=== PATIENT | male | born 1980 | race Caucasian/White ===

== ENCOUNTER 2016-11-28 18:00 | Emergency (ER) | payer SELFPAY ==
[2016-11-28] MEDS ORDERED: oxyCODONE/Acetamin 5/325 MG* TAB PO ONE (19:01)
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
[2016-11-28 19:40] VITALS: BP 126/77
== END 2016-11-28 19:39 | disposition home or self-care (01) ==
LOC: ED 18:00
DX: S00.432A Contusion of left ear, initial encounter (principal); H92.02 Otalgia, left ear; F17.210 Nicotine dependence, cigarettes, uncomplicated; Y08.89XA Assault by other specified means, initial encounter; Y93.9 Activity, unspecified; Y92.89 Other specified places as the place of occurrence of the external cause; Y99.9 Unspecified external cause status
CPT/HCPCS: 99282; A9270-GY

== ENCOUNTER → 2016-12-03 16:29 | Emergency (ER) | payer SELFPAY ==
[~2016-12-03 16:29] MED LIST: Ketorolac INJ* 60 MG/2 ML VIAL IM ONE
[2016-12-03 17:03] VITALS: BP 102/64
--- NOTE | 2016-12-03 18:55 | ED ---
Skin Complaint - HPI Summary HPI Summary: Patient presents with 1x week s/p injury to the left ear with CC of auricular hematoma. He was seen in the ED 5 days and the hematoma was aspirated and packed using xeroform gauze Today, he states the gauze fell out and he returns d/t hematoma again which is worse than the first visit. He notes to 8/10 pain discretely located over the auricle of the ear. Denies decreased hearing, neck pain or fevers. He has not been using a compression dressing and states the gauze fell out on day 2. - History of Current Complaint Chief Complaint: EDEarPain Time Seen by Provider: 12/03/16 17:34 Stated Complaint: LT EAR INFLAMMATION Hx Obtained From: Patient Onset/Duration: Started Weeks Ago, Traumatic Skin Exposure Onset/Duration: Weeks Ago Timing: Constant Onset Severity: Moderate Current Severity: Moderate Pain Intensity: 9 Pain Scale Used: 0-10 Numeric Skin Location: Discrete, Ear Character: Swelling, Pain Aggravating Symptom(s): Nothing Associated Signs & Symptoms: Drainage Related History: Trauma - Allergy/Home Medications Allergies/Adverse Reactions: Allergies Allergy/AdvReac Type Severity Reaction Status Date / Time Diazepam [From Valium] Allergy Unknown Verified 01/20/15 22:40 Reaction Details PMH/Surg Hx/FS Hx/Imm Hx Previously Healthy: Yes Endocrine/Hematology History: Denies: Hx Diabetes Cardiovascular History: Denies: Hx Hypertension, Hx Pacemaker/ICD Respiratory History: Denies: Hx Asthma Sensory History: Denies: Hx Hearing Aid Psychiatric History: Denies: Hx Panic Disorder - Surgical History Surgery Procedure, Year, and Place: LEFT KNEE ACL/FX RT KNEE WITH ORIF SCREW - Immunization History Hx Pertussis Vaccination: No Immunizations Up to Date: Unable to Obtain/Confirm Infectious Disease History: No Infectious Disease History: Denies: Traveled Outside the [place] in Last 30 Days - Family History Known Family History: Positive: Cardiac Disease - Social History Occupation: Employed Full-time Lives: With Family Alcohol Use: Occasionally Hx Substance Use: No Substance Use Type: Reports: None Hx Tobacco Use: Yes Smoking Status (MU): Heavy Every Day Tobacco Smoker Review of Systems Constitutional: Negative Eyes: Negative Positive: Ear Ache Cardiovascular: Negative Respiratory: Negative Positive: no symptoms reported, see HPI Musculoskeletal: Negative Positive: Other - hematoma of the left ear Neurological: Negative All Other Systems Reviewed And Are Negative: Yes Physical Exam Triage Information Reviewed: Yes Vital Signs On Initial Exam: Initial Vitals Temp Pulse Resp BP Pulse Ox 98.2 F 92 17 124/66 99 12/03/16 16:44 12/03/16 16:44 12/03/16 16:44 12/03/16 16:44 12/03/16 16:44 Vital Signs Reviewed: Yes Appearance: Positive: Well-Appearing, Well-Nourished Skin: Positive: Warm, Skin Color Reflects Adequate Perfusion, Other - auricular hematoma of the left ear Head/Face: Positive: Normal Head/Face Inspection Eyes: Positive: Normal, EOMI, CHAGO, Conjunctiva Clear Neck: Positive: Supple, No Lymphadenopathy Respiratory/Lung Sounds: Positive: Clear to Auscultation, Breath Sounds Present Cardiovascular: Positive: Normal, RRR, Pulses are Symmetrical in both Upper and Lower Extremities Musculoskeletal: Positive: Normal, Strength/ROM Intact Neurological: Positive: Sensory/Motor Intact, Alert, Oriented to Person Place, Time, Speech Normal Psychiatric: Positive: Normal Procedures - Incision and Drainage Site: left ear Anesthesia: Local Instrument(s): Scalpel, Needle Packing: Gauze - xeroform placed over area - Laceration/Wound Repair 1 Location: Other - ear Description: Linear Anesthesia: Local Betadine Prep?: No Laceration/Wound Explored: clean Closure: Single Layer Suture Type: Chromic - absorbable Layer Closure?: No - 1 Sterile Dressing Applied?: No Diagnostics - Vital Signs Vital Signs Temp Pulse Resp BP Pulse Ox 12/03/16 16:57 98.3 F 97 18 102/64 98 12/03/16 16:44 98.2 F 92 17 124/66 99 - Laboratory Lab Statement: Any lab studies that have been ordered have been reviewed, and results considered in the medical decision making process. Course/Dx - Course Course Of Treatment: s/p 1 week auricular hematoma of the left ear. He was seen in ED last week and area was drained and packed with xeroform gauze. He returns today for return of hematoma. States he is unable to follow up with ENT d/t no insurance. He also states the xeroform gauze fell off 2 days after placement and he did not keep a compression dressing over the ear. Used iodine solution to cleanse the area x 3. 2ml 1% lidocaine locally placed into the helical curvature with effect. The area was incised along the curvature of the auricle parallel to the helical curve at the base of the hematoma using a 11 blade. Copious amounts of yellow serious/sanguinous fluid drained. Irrigated with water. 1 absorbable 5-0 chormic gut suture placed through the cartilage. Small area left open for drainage. Xeroform gauze packed with gauze in the anterior and posterior portion of the ear. Compression dressing placed. Patient is encouraged to change out xeroform gauze x 3 days and continue 24 hours with compression. If hematoma develops, will return to ED or follow up with ENT. Patient agrees and is OK for discharge. - Differential Diagnoses - Skin Complaint Differential Diagnoses: Other - auricular hematoma, hematoma, incision, abscess - Diagnoses Provider Diagnoses: Hematoma of auricle Discharge - Discharge Plan Condition: Stable Disposition: HOME Patient Education Materials: Hematoma (ED) Referrals: No Primary Care Phys,NOPCP [Primary Care Provider] - Additional Instructions: If symptoms worsen, return to the ED Xeroform gauze and compression dressing as showed x 3 days. If worsening swelling develops - you need to return to the ED immediately. Images - Images Ear: 1 - hematoma with swelling - no ecchymosis or erythema noted
== END | disposition home or self-care (01) ==
LOC: ED 16:29
DX: S01.312A Laceration without foreign body of left ear, initial encounter (principal); X58.XXXA Exposure to other specified factors, initial encounter; Y93.9 Activity, unspecified; Y92.9 Unspecified place or not applicable
CPT/HCPCS: 12001; 99282; J1885

== ENCOUNTER 2016-12-07 14:44 | Emergency (ER) | payer SELFPAY ==
[2016-12-07] MEDS ORDERED: Cephalexin CAP* 500 MG PO ONE (16:04)
[2016-12-07] MEDS ORDERED: Ibuprofen TAB* 600 MG PO ONE (16:04)
[2016-12-07] MEDS ORDERED: HYDROcodone/ACETAMIN 5-325 MG* 1 TAB PO ONE (16:04)
[2016-12-07 16:27] VITALS: BP 116/76
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
== END 2016-12-07 16:26 | disposition home or self-care (01) ==
LOC: ED 14:44
DX: H60.02 Abscess of left external ear (principal); H92.02 Otalgia, left ear; F17.210 Nicotine dependence, cigarettes, uncomplicated
CPT/HCPCS: 87070; 87205; 99282; A9270-GY

== ENCOUNTER 2016-12-09 20:21 | Emergency (ER) | payer SELFPAY ==
[2016-12-09 20:28] VITALS: BP 141/89
[2016-12-09] MEDS ORDERED: oxyCODONE/Acetamin 5/325 MG* TAB PO ONE (22:12)
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
[2016-12-09] MEDS ORDERED: Sulfamethox/Trimethoprim DS 800/160* TAB PO ONE (22:59)
== END 2016-12-09 23:28 | disposition home or self-care (01) ==
LOC: ED 20:21
DX: S00.432A Contusion of left ear, initial encounter (principal); R60.9 Edema, unspecified; F17.210 Nicotine dependence, cigarettes, uncomplicated; W22.8XXA Striking against or struck by other objects, initial encounter; Y93.9 Activity, unspecified; Y92.9 Unspecified place or not applicable
CPT/HCPCS: 99282; A9270-GY

== ENCOUNTER 2017-03-14 01:05 | Observation (INO) | payer MEDICAID ==
[2017-03-14] MEDS ORDERED: oxyCODONE/Acetamin 5/325 MG* TAB PO ONE (02:51)
[2017-03-14] MEDS ORDERED: Tetan/Diph/Pertus SYR(Tdap)* 0.5 ML SYR(BOOSTRIX) use SYR IM ONE (03:58)
[2017-03-14] MEDS ORDERED: Mouth Piece, Nicotine* 1 EACH CARTRIDGE INH PRN (04:04)
[2017-03-14] MEDS ORDERED: Ondansetron INJ* 2 MG/ML VIAL IV PRN (04:08)
[2017-03-14] MEDS ORDERED: Mouth Piece, Nicotine* 1 EACH CARTRIDGE ONE (04:09)
[2017-03-14] MEDS: Nicotine Inhaler* 10 MG AMP INH ONE ×2 (04:18→05:48)
[2017-03-14 05:17] LABS: Hematocrit 46 % (42-52); Hemoglobin 15.4 g/dl (14.0-18.0); Mean Corpuscular HGB Conc 34 g/dl (31-36); Mean Corpuscular Hemoglobin 30 pg (27-31); Mean Corpuscular Volume 89 fL (80-94); Mean Platelet Volume 8 um3 (7.4-10.4); Red Blood Count 5.17 10^6/ul (4.0-5.4); Red Cell Distribution Width 14 % (10.5-15); White Blood Count 16.1 10^3/ul (3.5-10.8)
[2017-03-14 05:29] LABS: Albumin 4.7 g/dL (3.2-5.2); BUN/Creatinine Ratio 11.5 (8-20); Calcium 9.6 mg/dL (8.6-10.3); EGFR African American 127.7 (>60); EGFR Non-African American 99.3 (>60); Globulin 2.8 g/dL (2-4); Potassium 3.9 mmol/L (3.5-5.0); Total Bilirubin 0.3 mg/dL (0.2-1.0); Total Protein 7.5 g/dL (6.4-8.9)
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
[2017-03-14] MEDS ORDERED: Nicotine Inhaler* 10 MG AMP ONE ×2 (05:46→09:28)
[2017-03-14] MEDS ORDERED: Mouth Piece, Nicotine* 1 EACH CARTRIDGE INH ONE (06:00)
[2017-03-14] MEDS: oxyCODONE/Acetamin 5/325 MG* TAB PO PRN ×2 (07:40→12:06)
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
[2017-03-14] MEDS ORDERED: Nicotine PATCH 14 MG/24 HR* PATCH TRANSDERM SCH (09:00)
--- NOTE | 2017-03-14 10:37 | RAD ---
INDICATION: Intracranial [id number] COMPARISON: CT brain March 14, 2017 TECHNIQUE: Noncontrast axial source images were acquired from the skull base to the vertex. FINDINGS: Ventricles/sulci: The ventricles and cisterns are normal in size and configuration for age. Brain parenchyma: There are bilateral subfrontal intraparenchymal hematomas. There is increased conspicuity on the left consistent with a small amount of increased hemorrhage. The hemorrhagic focus measures approximately 2 cm on the left and is associated with a small amount of edema. On the right the findings are perhaps slightly less conspicuous. Intracranial hemorrhage: As above. Extra-axial spaces: There are no abnormal extra axial fluid collections or evidence of extra-axial mass. Calvarium: There is no calvarial fracture or other calvarial abnormality. Scalp: There is no evidence of scalp or extracalvarial soft tissue abnormality. Paranasal sinuses/mastoid: The paranasal sinuses and mastoid air cells are clear. Other: There is a hematoma the left maxillary region described in a separate report.. IMPRESSION: Bilateral subfrontal hemorrhage with slight increased hemorrhage in the left subfrontal region
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
[2017-03-14 11:47] VITALS: BP 143/86
--- NOTE | 2017-03-14 12:00 | PN ---
Progress Note - Progress Note Date of Service: 03/14/17 Note: Again discussed the case with Dr. Robbins. He recommends repeat CT brain tomorrow morning, 03/15/17, rather than in 8 hours. Order placed and plan discussed with the patient.
== END 2017-03-14 12:25 | disposition left against medical advice (07) ==
LOC: ED 01:05 → SSU 04:04
PROVIDERS: ADMIT Neurological Surgery; ATTEND Neurological Surgery
DX: S06.300A Unspecified focal traumatic brain injury without loss of consciousness, initial encounter (principal); S00.83XA Contusion of other part of head, initial encounter; S61.219A Laceration without foreign body of unspecified finger without damage to nail, initial encounter; Y04.8XXA Assault by other bodily force, initial encounter; Y92.9 Unspecified place or not applicable; R51 Headache; F17.210 Nicotine dependence, cigarettes, uncomplicated; M54.2 Cervicalgia
CPT/HCPCS: 36415; 70450; 70486; 80053; 85025; 85610; 85730; 90715; 99284; A9270-GY; G0378

== ENCOUNTER 2017-07-06 09:20 | Emergency (ER) | payer MEDICAID, OTHER ==
--- NOTE | 2017-07-06 11:09 | RAD ---
Indication: RIGHT knee pain post fall. Comparison: January 20, 2015 Technique: RIGHT knee: AP, tunnel, lateral, sunrise views. REPORT: Negative for joint effusion, fracture, or malalignment. Solitary internal fixation screw at the inferolateral patella unchanged from the prior exam. Osteophytosis and moderate joint space narrowing at the patellofemoral joint. Mild anterior soft tissue swelling. IMPRESSION: 1. Mild anterior soft tissue swelling. Negative for effusion or fracture. 2. Moderate degenerative arthropathy at the patellofemoral joint without significant change.
[2017-07-06] MEDS ORDERED: Ibuprofen TAB* 600 MG PO ONE (11:20)
[2017-07-06 11:29] VITALS: BP 137/81
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
== END 2017-07-06 11:29 | disposition home or self-care (01) ==
LOC: ED 09:20
DX: M25.561 Pain in right knee (principal); F17.210 Nicotine dependence, cigarettes, uncomplicated
CPT/HCPCS: 99282; A9270-GY

== ENCOUNTER 2017-07-27 15:29 | Emergency (ER) | payer SELFPAY ==
[2017-07-27] MEDS ORDERED: NS 0.9% 1000 ML* 1,000 ML IV ONE (15:47)
[2017-07-27 16:11] LABS: ABS Basophils 0.1 10^3/ul (0-0.2); ABS Eosinophils 0.2 10^3/ul (0-0.6); ABS Lymphocytes 2.5 10^3/ul (1.0-4.8); ABS Monocytes 0.6 10^3/ul (0-0.8); ABS Neutrophils 6.5 10^3/ul (1.5-7.7); ABS Nucleated RBC 0 10^3/ul; Eosinophil % 1.7 % (0-6); Hematocrit 49 % (42-52); Hemoglobin 16.6 g/dl (14.0-18.0); Lymphocyte % 25.4 % (25-47); Mean Corpuscular HGB Conc 34 g/dl (31-36); Mean Corpuscular Hemoglobin 30 pg (27-31); Mean Corpuscular Volume 89 fL (80-94); Mean Platelet Volume 9 um3 (7.4-10.4); Nucleated Red Blood Cells % 0; Platelet Count 245 10^3/ul (150-450); Red Blood Count 5.54 10^6/ul (4.0-5.4); Red Cell Distribution Width 13 % (10.5-15); White Blood Count 9.9 10^3/ul (3.5-10.8)
--- NOTE | 2017-07-27 16:15 | RAD ---
INDICATION: Chest pain COMPARISON: August 09, 2013 TECHNIQUE: An AP portable view obtained at 1605 hours is submitted. FINDINGS: Bones/Soft Tissues: There are no acute bony findings. Cardiomediastinal: The cardiomediastinal silhouette is normal. Lungs: There are no infiltrates. Pleura: There are no pleural effusions. Other: None IMPRESSION: NO ACTIVE DISEASE.
[2017-07-27 16:19] LABS: INR 0.92 (0.77-1.02)
[2017-07-27 16:23] LABS: EGFR Non-African American 107.8 (>60)
[2017-07-27] MEDS ORDERED: Al Hydrox/Mg Hydrox/Simet LIQ* 30 ML UDC PO ONE (17:08)
[2017-07-27] MEDS ORDERED: ALPRAZolam TAB* 0.25 MG PO ONE ×2 (17:08→19:04)
[2017-07-27] MEDS ORDERED: Lidocaine 2% VISCOUS* 15 ML UDC PO ONE (17:08)
[2017-07-27] MEDS ORDERED: Iohexol 350* (CONTRAST) 500 ML MDV IV ONE (17:49)
--- NOTE | 2017-07-27 18:04 | RAD ---
INDICATION: Chest pain. Short of breath. Normal d-dimer. Evaluate for pulmonary embolus. COMPARISON: Chest x-ray same date TECHNIQUE: Axial source images were obtained from the thoracic inlet to the hemidiaphragms following administration of [address] angiographic technique was utilized. Coronal and sagittal reconstructed images were acquired. CHEST FINDINGS: Neck/thyroid: The visualized neck to include the thyroid appear normal. Chest wall: There are no acute abnormalities of the bony thorax or chest wall. There is no supraclavicular, infraclavicular, or axillary lymphadenopathy. Lungs : There are no pulmonary parenchymal masses or infiltrates. The pulmonary interstitium appears normal. There are no endobronchial lesions. Cardiomediastinal structures: There is no CT evidence of acute pulmonary embolic disease. The heart is normal in size. There is no pericardial effusion. There is no evidence of aortic aneurysm or dissection. There is no mediastinal or hilar adenopathy. The esophagus appears normal. Pleura : There are no pleural-based masses or effusions. Other: None. IMPRESSION: NO CT EVIDENCE OF ACUTE PULMONARY EMBOLIC DISEASE. LUNGS CLEAR.
[2017-07-27] MEDS ORDERED: Omeprazole CAP* 20 MG PO ONE (19:03)
[2017-07-27 19:25] VITALS: BP 131/78
--- NOTE | 2017-07-27 21:57 | ED ---
Luis Alfredo Tovar Stephanie, scribed for Carlos Paul MD on 07/27/17 at 1705 . HPI Chest Pain - HPI Summary HPI Summary: The pt is a 36 y/o M presenting to the ED with c/o CP that began at 03:00 today. The pt states he has had intermittent CP that radiates into the back for the past few months. The pt describes his back pain as a stabbing pain. He describes his CP as a squeezing pain. Symptoms include diaphoresis and dizziness. The pt denies nausea, recent illness, fever and chills. Aggravating factors include movement. The pt states he has a hx of back injury and head trauma six months ago. He states that his CP began yesterday as the same feeling as when he has anxiety. The pt states he has recently been under a lot of stress. - History of Current Complaint Chief Complaint: EDChestPainROMI Time Seen by Provider: 07/27/17 16:49 Hx Obtained From: Patient Onset/Duration: Started Hours Ago - ~15 Timing: Intermittent Current Severity: Moderate Pain Intensity: 8 Pain Scale Used: 0-10 Numeric Chest Pain Location: Mid Sternal Chest Pain Radiates: Yes Chest Pain Radiates To:: Back Character: Pressure/Squeezing, Sharp/Stabbing Aggravating Factor(s): Other: - stress Alleviating Factor(s): Nothing Associated Signs and Symptoms: Positive: Chest Pain, Dizziness, Diaphoresis, Back Pain. Negative: Fever, Chills, Nausea - Additional Pertinent History Primary Care Physician: [id number] - Allergy/Home Medications Allergies/Adverse Reactions: Allergies Allergy/AdvReac Type Severity Reaction Status Date / Time diazepam [From Valium] Allergy Unknown Verified 07/27/17 15:44 Reaction Details sulfamethoxazole Allergy GI Upset Verified 07/27/17 15:52 [From Bactrim] trimethoprim [From Bactrim] Allergy GI Upset Verified 07/27/17 15:52 Home Medications: Home Medications Potassium 99 mg PO DAILY 07/27/17 [History Confirmed 07/27/17] PMH/Surg Hx/FS Hx/Imm Hx Endocrine/Hematology History: Denies: Hx Diabetes Cardiovascular History: Denies: Hx Hypertension, Hx Pacemaker/ICD Respiratory History: Denies: Hx Asthma Musculoskeletal History: Reports: Other Musculoskeletal History - acl repair Sensory History: Reports: Hx Contacts or Glasses Denies: Hx Hearing Aid Opthamlomology History: Reports: Hx Contacts or Glasses Psychiatric History: Reports: Hx Anxiety Denies: Hx Panic Disorder - Surgical History Surgery Procedure, Year, and Place: LEFT KNEE ACL/FX RT KNEE WITH ORIF SCREW Infectious Disease History: No Infectious Disease History: Denies: Hx of Known/Suspected MRSA, Traveled Outside the [place] in Last 30 Days - Family History Known Family History: Positive: Cardiac Disease - Social History 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 Negative: Fever, Chills Positive: Chest Pain Negative: Nausea Positive: Other - back pain Neurological: Other - dizziness All Other Systems Reviewed And Are Negative: Yes Physical Exam - Summary Physical Exam Summary: General: well-appearing, no pain distress Skin: warm, color reflects adequate perfusion, dry Head: normal Eyes: EOMI, [place] ENT: normal Neck: supple, nontender Respiratory: CTA, breath sounds present Cardiovascular: RRR Abdomen: soft, nontender Bowel: present Musculoskeletal: normal, strength/ROM intact Neurological: normal, sensory/motor intact, A&O x3 Psychological: affect/mood appropriate Triage Information Reviewed: Yes Vital Signs On Initial Exam: Initial Vitals Temp Pulse Resp BP Pulse Ox 99.7 F 99 16 129/94 100 07/27/17 15:35 07/27/17 15:35 07/27/17 15:35 07/27/17 15:35 07/27/17 15:35 Vital Signs Reviewed: Yes Diagnostics - Vital Signs Vital Signs Temp Pulse Resp BP Pulse Ox 07/27/17 16:30 95 10 132/81 99 07/27/17 16:04 98 07/27/17 16:00 97 15 139/89 97 07/27/17 15:45 99 14 98 07/27/17 15:42 129/94 07/27/17 15:35 99.7 F 99 16 129/94 100 - Laboratory Lab Results: Lab Results 07/27/17 07/27/17 07/27/17 Range/Units 15:51 15:57 15:57 WBC 9.9 (3.5-10.8) 10^3/ul RBC 5.54 H (4.0-5.4) 10^6/ul Hgb 16.6 (14.0-18.0) g/dl Hct 49 (42-52) % MCV 89 (80-94) fL MCH 30 (27-31) pg MCHC 34 (31-36) g/dl RDW 13 (10.5-15) % Plt Count 245 (150-450) 10^3/ul MPV 9 (7.4-10.4) um3 Neut % (Auto) 65.8 (38-83) % Lymph % (Auto) 25.4 (25-47) % [place] % (Auto) 6.6 (0-7) % Eos % (Auto) 1.7 (0-6) % Baso % (Auto) 0.5 (0-2) % Absolute Neuts (auto) 6.5 (1.5-7.7) 10^3/ul Absolute Lymphs (auto) 2.5 (1.0-4.8) 10^3/ul Absolute Monos (auto) 0.6 (0-0.8) 10^3/ul Absolute Eos (auto) 0.2 (0-0.6) 10^3/ul Absolute Basos (auto) 0.1 (0-0.2) 10^3/ul Absolute Nucleated RBC 0 10^3/ul Nucleated RBC % 0 INR (Anticoag Therapy) (0.77-1.02) APTT (26.0-36.3) seconds D-Dimer, Quantitative (Less Than 230) ng/mL Sodium 136 (133-145) mmol/L Potassium 3.8 (3.5-5.0) mmol/L Chloride 106 (101-111) mmol/L Carbon Dioxide 25 (22-32) mmol/L Anion Gap 5 (2-11) mmol/L BUN 6 (6-24) mg/dL Creatinine 0.81 (0.67-1.17) mg/dL Est GFR ( Amer) 138.7 (>60) Est GFR (Non-Af Amer) 107.8 (>60) BUN/Creatinine Ratio 7.4 L (8-20) Glucose 94 (70-100) mg/dL Lactic Acid (0.5-2.0) mmol/L Calcium 9.2 (8.6-10.3) mg/dL Magnesium 2.1 (1.9-2.7) mg/dL Total Bilirubin 0.30 (0.2-1.0) mg/dL AST 13 (13-39) U/L ALT 17 (7-52) U/L Alkaline Phosphatase 70 (34-104) U/L Total Creatine Kinase 71 (10-223) U/L CK-MB (CK-2) 0.9 (0.6-6.3) ng/mL Troponin I 0.00 (<0.04) ng/mL B-Natriuretic Peptide 15 ( - 100) pg/mL Total Protein 6.9 (6.4-8.9) g/dL Albumin 4.2 (3.2-5.2) g/dL Globulin 2.7 (2-4) g/dL Albumin/Globulin Ratio 1.6 (1-3) TSH 1.74 (0.34-5.60) mcIU/mL 07/27/17 07/27/17 Range/Units 15:57 15:57 WBC (3.5-10.8) 10^3/ul RBC (4.0-5.4) 10^6/ul Hgb (14.0-18.0) g/dl Hct (42-52) % MCV (80-94) fL MCH (27-31) pg MCHC (31-36) g/dl RDW (10.5-15) % Plt Count (150-450) 10^3/ul MPV (7.4-10.4) um3 Neut % (Auto) (38-83) % Lymph % (Auto) (25-47) % [place] % (Auto) (0-7) % Eos % (Auto) (0-6) % Baso % (Auto) (0-2) % Absolute Neuts (auto) (1.5-7.7) 10^3/ul Absolute Lymphs (auto) (1.0-4.8) 10^3/ul Absolute Monos (auto) (0-0.8) 10^3/ul Absolute Eos (auto) (0-0.6) 10^3/ul Absolute Basos (auto) (0-0.2) 10^3/ul Absolute Nucleated RBC 10^3/ul Nucleated RBC % INR (Anticoag Therapy) 0.92 (0.77-1.02) APTT 33.0 (26.0-36.3) seconds D-Dimer, Quantitative < 200 (Less Than 230) ng/mL Sodium (133-145) mmol/L Potassium (3.5-5.0) mmol/L Chloride (101-111) mmol/L Carbon Dioxide (22-32) mmol/L Anion Gap (2-11) mmol/L BUN (6-24) mg/dL Creatinine (0.67-1.17) mg/dL Est GFR ( Amer) (>60) Est GFR (Non-Af Amer) (>60) BUN/Creatinine Ratio (8-20) Glucose (70-100) mg/dL Lactic Acid 0.7 (0.5-2.0) mmol/L Calcium (8.6-10.3) mg/dL Magnesium (1.9-2.7) mg/dL Total Bilirubin (0.2-1.0) mg/dL AST (13-39) U/L ALT (7-52) U/L Alkaline Phosphatase (34-104) U/L Total Creatine Kinase (10-223) U/L CK-MB (CK-2) (0.6-6.3) ng/mL Troponin I (<0.04) ng/mL B-Natriuretic Peptide ( - 100) pg/mL Total Protein (6.4-8.9) g/dL Albumin (3.2-5.2) g/dL Globulin (2-4) g/dL Albumin/Globulin Ratio (1-3) TSH (0.34-5.60) mcIU/mL Result Diagrams: 07/27/17 15:57 07/27/17 15:57 Lab Statement: Any lab studies that have been ordered have been reviewed, and results considered in the medical decision making process. - Radiology CXR Xray Interpretation: No Acute Changes Radiology Interpretation Completed By: Radiologist - NO ACTIVE DISEASE - CT CTA Chest CT Interpretation: No Acute Changes CT Interpretation Completed By: Radiologist - NO CT EVIDENCE OF ACUTE PULMONARY EMBOLIC DISEASE. LUNGS CLEAR. - EKG 15:47 Cardiac Rate: NL EKG Rhythm: Sinus Rhythm - [address] Segment: Normal Ectopy: None EKG Interpretation: Not a STEMI Chest Pain Course/Dx - Course Course Of Treatment: BP noted and advised to follow up with PCP. Medications reviewed. Allergies noted. IMPROVED IN ED. NO SECOND TROPONIN CHEST PAIN ONSET GREATER THAN 6 HOURS COAL SAMPLER. DISCUSSED RESULT WITH PATIENT AND . F/U PMD; RETURN IF WORSE. - Diagnoses Provider Diagnoses: Elevated blood pressure reading without diagnosis of hypertension, Chest pain, Anxiety, GERD (gastroesophageal reflux disease) Discharge - Discharge Plan Condition: Stable Disposition: HOME Prescriptions: ALPRAZolam TAB* [Xanax TAB*] 0.25 mg PO Q8H PRN #15 tab MDD 3 PRN Reason: Anxiety Omeprazole CAP* [Prilosec CAP* 20 MG] 20 mg PO BID #30 cap. Patient Education Materials: Chest Pain (ED), Gastroesophageal Reflux Disease ( ED), Anxiety (ED) Referrals: [facility] [place] [facility] [place]Outside] Additional Instructions: FOLLOW UP WITH YOUR DOCTOR. RETURN TO THE EMERGENCY DEPARTMENT FOR ANY WORSENING OF YOUR CONDITION OR QUESTIONS OR CONCERNS. YOUR BLOOD PRESSURE WAS ELEVATED TODAY; FOLLOW UP WITH YOUR PRIMARY CARE DOCTOR WITHIN THE NEXT 1 WEEK. The documentation as recorded by the Luis Alfredo juarez Stephanie accurately reflects the service I personally performed and the decisions made by me, Carlos Paul MD.
== END 2017-07-27 19:27 | disposition home or self-care (01) ==
LOC: ED 15:29
DX: R07.9 Chest pain, unspecified (principal); F41.9 Anxiety disorder, unspecified; K21.9 Gastro-esophageal reflux disease without esophagitis; R03.0 Elevated blood-pressure reading, without diagnosis of hypertension; Z72.0 Tobacco use
CPT/HCPCS: 36415; 71045; 71275; 80053; 82550; 82553; 83605; 83735; 83880; 84443; 84484; 85025; 85379; 85610; 85730; 93005; 96360; 96374; 99284; A9270-GY; Q9967

== ENCOUNTER 2017-08-06 16:45 | Emergency (ER) | payer MEDICAID ==
--- NOTE | 2017-08-06 18:57 | RAD ---
INDICATION: Chest pain. COMPARISON: Comparison is made with prior study from July 27, 2017. TECHNIQUE: A portable view of the chest was obtained. FINDINGS: Cardiac and mediastinal contours appear to be within normal limits. The lungs are clear. No pleural effusion is seen. IMPRESSION: NO EVIDENCE FOR ACUTE DISEASE.
[2017-08-06 19:15] LABS: ABS Basophils 0.1 10^3/ul (0-0.2); ABS Eosinophils 0.2 10^3/ul (0-0.6); ABS Lymphocytes 2.3 10^3/ul (1.0-4.8); ABS Monocytes 0.7 10^3/ul (0-0.8); ABS Neutrophils 4.3 10^3/ul (1.5-7.7); ABS Nucleated RBC 0 10^3/ul; Eosinophil % 2.9 % (0-6); Hematocrit 47 % (42-52); Hemoglobin 15.9 g/dl (14.0-18.0); Lymphocyte % 30.1 % (25-47); Mean Corpuscular HGB Conc 34 g/dl (31-36); Mean Corpuscular Hemoglobin 30 pg (27-31); Mean Corpuscular Volume 89 fL (80-94); Mean Platelet Volume 9 um3 (7.4-10.4); Nucleated Red Blood Cells % 0; Platelet Count 257 10^3/ul (150-450); Red Blood Count 5.27 10^6/ul (4.0-5.4); Red Cell Distribution Width 13 % (10.5-15); White Blood Count 7.6 10^3/ul (3.5-10.8)
[2017-08-06 19:22] LABS: INR 1.03 (0.77-1.02)
[2017-08-06 19:34] LABS: EGFR Non-African American 99.3 (>60)
[2017-08-06] MEDS ORDERED: ALPRAZolam TAB* 0.5 MG PO ONE (19:57)
[2017-08-06 20:41] VITALS: BP 138/85
--- NOTE | 2017-08-06 23:43 | ED ---
Kaycee Tovar Abhishek, scribed for Josee Walsh MD on 08/06/17 at 203 . Back Pain - HPI Summary HPI Summary: The pt is a 36 y/o male patient that is presenting [place] [facility] with [place]/o of back pain and shoulder pain. The pt states that that the back and shoulder pain is a sharp stabbing pain that radiates to the chest. Pt was previously here on the (07/27/17) and the pt states that he was prescribed Xanax for reportedly similar symptoms. Pertinent PMHx includes anxiety and pt states that he currently feels "overwhelmed." Symptoms aggravated by nothing and symptoms alleviated by position. Pt was also unable to see specialist and PCP since prior to ED arrival. - History of Current Complaint Chief Complaint: EDChestPainROMI Stated Complaint: CHEST PAIN Time Seen by Provider: 08/06/17 19:24 Hx Obtained From: Patient Onset/Duration: Lasting Weeks - since 07/27/17 Timing: Constant Severity Initially: Moderate Severity Currently: Moderate Pain Intensity: 7 Pain Scale Used: 0-10 Numeric Character: Sharp Aggravating Symptom(s): Nothing Alleviating Symptom(s): Position Associated Signs And Symptoms: Positive: Other - Anxiety; chest pain - Allergies/Home Medications Allergies/Adverse Reactions: Allergies Allergy/AdvReac Type Severity Reaction Status Date / Time diazepam [From Valium] Allergy Unknown Verified 08/06/17 18:13 Reaction Details sulfamethoxazole Allergy GI Upset Verified 08/06/17 18:13 [From Bactrim] trimethoprim [From Bactrim] Allergy GI Upset Verified 08/06/17 18:13 PMH/Surg Hx/FS Hx/Imm Hx Endocrine/Hematology History: Denies: Hx Diabetes Cardiovascular History: Denies: Hx Hypertension, Hx Pacemaker/ICD Respiratory History: Denies: Hx Asthma Musculoskeletal History: Reports: Other Musculoskeletal History - acl repair Sensory History: Reports: Hx Contacts or Glasses Denies: Hx Hearing Aid Opthamlomology History: Reports: Hx Contacts or Glasses Psychiatric History: Reports: Hx Anxiety Denies: Hx Panic Disorder - Surgical History Surgery Procedure, Year, and Place: LEFT KNEE ACL/FX RT KNEE WITH ORIF SCREW Infectious Disease History: No Infectious Disease History: Denies: Hx of Known/Suspected MRSA, Traveled Outside the [place] in Last 30 Days - Family History Known Family History: Positive: Cardiac Disease Negative: Diabetes - Social History Alcohol Use: None Hx Substance Use: No Substance Use Type: Reports: None Hx Tobacco Use: Yes Smoking Status (MU): Heavy Every Day Tobacco Smoker Review of Systems Constitutional: Negative Eyes: Negative ENT: Negative Positive: Chest Pain Respiratory: Negative Gastrointestinal: Negative Genitourinary: Negative Musculoskeletal: Other - back pain and shoulder pain Skin: Negative Neurological: Negative Positive: Anxious All Other Systems Reviewed And Are Negative: Yes Physical Exam - Summary Physical Exam Summary: VITAL SIGNS: Reviewed. GENERAL: ~Patient is a well-developed and nourished (MALE) who is lying comfortable in the stretcher. Patient is not in any acute respiratory distress. HEAD AND FACE: No signs of trauma. No ecchymosis, hematomas or skull depressions. No sinus tenderness. EYES: PERRLA, EOMI x 2, No injected conjunctiva, no nystagmus. EARS: Hearing grossly intact. Ear canals and tympanic membranes are within normal limits. MOUTH: Oropharynx within normal limits. NECK: Supple, trachea is midline, no adenopathy, no JVD, no carotid bruit, no c- spine tenderness, neck with full ROM. CHEST: Symmetric, n SKIN: Dry and warm o tenderness at palpation LUNGS: Clear to auscultation bilaterally. No wheezing or crackles. CVS: Regular rate and rhythm, S1 and S2 present, no murmurs or gallops appreciated. ABDOMEN: Soft, non-tender. No signs of distention. No rebound no guarding, and no masses palpated. Bowel sounds are normal. EXTREMITIES: FROM in all major joints, no edema, no cyanosis or clubbing. NEURO: Alert and oriented x 3. No acute neurological deficits. Speech is normal and follows commands. Triage Information Reviewed: Yes Vital Signs On Initial Exam: Initial Vitals Temp Pulse Resp BP Pulse Ox 98.8 F 107 18 137/78 98 08/06/17 16:48 08/06/17 16:48 08/06/17 16:48 08/06/17 16:48 08/06/17 16:48 Vital Signs Reviewed: Yes Diagnostics - Vital Signs Vital Signs Temp Pulse Resp BP Pulse Ox 08/06/17 18:30 95 17 129/81 96 08/06/17 18:23 11 08/06/17 18:22 122/67 08/06/17 16:48 98.8 F 107 18 137/78 98 - Laboratory Lab Results: Lab Results 08/06/17 08/06/17 08/06/17 Range/Units 19:05 19:05 19:05 WBC 7.6 (3.5-10.8) 10^3/ul RBC 5.27 (4.0-5.4) 10^6/ul Hgb 15.9 (14.0-18.0) g/dl Hct 47 (42-52) % MCV 89 (80-94) fL MCH 30 (27-31) pg MCHC 34 (31-36) g/dl RDW 13 (10.5-15) % Plt Count 257 (150-450) 10^3/ul MPV 9 (7.4-10.4) um3 Neut % (Auto) 56.6 (38-83) % Lymph % (Auto) 30.1 (25-47) % [place] % (Auto) 8.9 H (0-7) % Eos % (Auto) 2.9 (0-6) % Baso % (Auto) 1.5 (0-2) % Absolute Neuts (auto) 4.3 (1.5-7.7) 10^3/ul Absolute Lymphs (auto) 2.3 (1.0-4.8) 10^3/ul Absolute Monos (auto) 0.7 (0-0.8) 10^3/ul Absolute Eos (auto) 0.2 (0-0.6) 10^3/ul Absolute Basos (auto) 0.1 (0-0.2) 10^3/ul Absolute Nucleated RBC 0 10^3/ul Nucleated RBC % 0 INR (Anticoag Therapy) 1.03 H (0.77-1.02) Sodium 140 (133-145) mmol/L Potassium 3.8 (3.5-5.0) mmol/L Chloride 107 (101-111) mmol/L Carbon Dioxide 29 (22-32) mmol/L Anion Gap 4 (2-11) mmol/L BUN 9 (6-24) mg/dL Creatinine 0.87 (0.67-1.17) mg/dL Est GFR ( Amer) 127.7 (>60) Est GFR (Non-Af Amer) 99.3 (>60) BUN/Creatinine Ratio 10.3 (8-20) Glucose 71 (70-100) mg/dL Lactic Acid (0.5-2.0) mmol/L Calcium 9.5 (8.6-10.3) mg/dL Magnesium 2.1 (1.9-2.7) mg/dL Total Bilirubin 0.40 (0.2-1.0) mg/dL AST 17 (13-39) U/L ALT 18 (7-52) U/L Alkaline Phosphatase 64 (34-104) U/L Myoglobin 23.7 (17.4-105.7) ng/mL Troponin I 0.00 (<0.04) ng/mL Total Protein 7.0 (6.4-8.9) g/dL Albumin 4.3 (3.2-5.2) g/dL Globulin 2.7 (2-4) g/dL Albumin/Globulin Ratio 1.6 (1-3) //18 Range/Units 19:05 WBC (3.5-10.8) 10^3/ul RBC (4.0-5.4) 10^6/ul Hgb (14.0-18.0) g/dl Hct (42-52) % MCV (80-94) fL MCH (27-31) pg MCHC (31-36) g/dl RDW (10.5-15) % Plt Count (150-450) 10^3/ul MPV (7.4-10.4) um3 Neut % (Auto) (38-83) % Lymph % (Auto) (25-47) % [place] % (Auto) (0-7) % Eos % (Auto) (0-6) % Baso % (Auto) (0-2) % Absolute Neuts (auto) (1.5-7.7) 10^3/ul Absolute Lymphs (auto) (1.0-4.8) 10^3/ul Absolute Monos (auto) (0-0.8) 10^3/ul Absolute Eos (auto) (0-0.6) 10^3/ul Absolute Basos (auto) (0-0.2) 10^3/ul Absolute Nucleated RBC 10^3/ul Nucleated RBC % INR (Anticoag Therapy) (0.77-1.02) Sodium (133-145) mmol/L Potassium (3.5-5.0) mmol/L Chloride (101-111) mmol/L Carbon Dioxide (22-32) mmol/L Anion Gap (2-11) mmol/L BUN (6-24) mg/dL Creatinine (0.67-1.17) mg/dL Est GFR ( Amer) (>60) Est GFR (Non-Af Amer) (>60) BUN/Creatinine Ratio (8-20) Glucose (70-100) mg/dL Lactic Acid 1.1 (0.5-2.0) mmol/L Calcium (8.6-10.3) mg/dL Magnesium (1.9-2.7) mg/dL Total Bilirubin (0.2-1.0) mg/dL AST (13-39) U/L ALT (7-52) U/L Alkaline Phosphatase (34-104) U/L Myoglobin (17.4-105.7) ng/mL Troponin I (<0.04) ng/mL Total Protein (6.4-8.9) g/dL Albumin (3.2-5.2) g/dL Globulin (2-4) g/dL Albumin/Globulin Ratio (1-3) Result Diagrams: 08/06/17 19:05 08/06/17 19:05 Lab Statement: Any lab studies that have been ordered have been reviewed, and results considered in the medical decision making process. - Radiology Chest X-ray Radiology Interpretation Completed By: ED Physician - Chest X-ray NO EVIDENCE FOR ACUTE DISEASE. ED Physician has reviewed the radiology report and agrees. - EKG 1656 EKG Rhythm: Sinus Rhythm - 99 bpm EKG Interpretation: EKG at 1656 reveals normal axis, normal intervals, and no ischemic changes Back Pain Course/Dx - Course Course Of Treatment: The pt is a 36 y/o M with a chief complaint of shoulder and back pain. The pt states that he was here previously for similar symptoms and was discharged home with a prescription for Xanax. The pt also states he has been feeling "overwhelmed" lately due to stress and is anxious. He has a hx of anxiety. Pt also reports of chest pain. An EKG and chest x-ray of the pt was taken. The pt will have a dx of atypical chest pain and anxiety. The pt will be discharged home. - Diagnoses Provider Diagnoses: Anxiety, Atypical chest pain, Non-cardiac chest pain Discharge - Discharge Plan Condition: Stable Disposition: HOME Prescriptions: ALPRAZolam TAB* [Xanax TAB*] 0.5 mg PO BID PRN #10 tab MDD 2 PRN Reason: Anxiety Patient Education Materials: Chest Pain (ED), Anxiety (ED) Referrals: [facility] [facility] [place]] (Pt should follow up with primary care physician within 2 to 3 days.) No Primary Care Phys,NOPCP [Primary Care Provider] - Additional Instructions: RETURN TO THE EMERGENCY DEPARTMENT FOR CHANGING OR WORSENING SYMPTOMS. The documentation as recorded by the Kaycee juarez Abhishek accurately reflects the service I personally performed and the decisions made by , Josee Walsh MD.
== END 2017-08-06 20:34 | disposition home or self-care (01) ==
LOC: ED 16:45
DX: R07.89 Other chest pain (principal); F41.9 Anxiety disorder, unspecified; M54.9 Dorsalgia, unspecified; F17.210 Nicotine dependence, cigarettes, uncomplicated
CPT/HCPCS: 36415; 71045; 80053; 83605; 83735; 83874; 84484; 85025; 85610; 93005; 99283

== ENCOUNTER 2018-07-11 18:01 | Emergency (ER) | payer MEDICAID ==
[2018-07-11] MEDS ORDERED: Methocarbamol TAB* 500 MG PO ONE (20:06)
[2018-07-11] MEDS ORDERED: Ketorolac INJ* 30 MG/ML 1 ML VIAL IM ONE (20:08)
[2018-07-11] MEDS ORDERED: oxyCODONE/Acetamin 5/325 MG* TAB PO ONE (20:08)
--- NOTE | 2018-07-11 20:42 | ED ---
Back Pain - HPI Summary HPI Summary: 37 year old male presents with back pain since yesterday. He states he was lifting something and felt a pop. He states his been having pain on the right leg. No urinary symptoms. No loss of bowel or bladder. No saddle anesthesias. he is still able to ambulate. He admits to tingling down the right leg. Has history of back issues but has never had this pain before. No weakness. Has been taking ibuprofen for pain with minimal relief. 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 No other injury. - History of Current Complaint Chief Complaint: EDBackInjuryPain Stated Complaint: BACK INJURY Time Seen by Provider: 07/11/18 19:33 Pain Intensity: 7 - Allergies/Home Medications Allergies/Adverse Reactions: Allergies Allergy/AdvReac Type Severity Reaction Status Date / Time diazepam [From Valium] Allergy Unknown Verified 08/06/17 18:13 Reaction Details sulfamethoxazole Allergy GI Upset Verified 08/06/17 18:13 [From Bactrim] trimethoprim [From Bactrim] Allergy GI Upset Verified 08/06/17 18:13 PMH/Surg Hx/FS Hx/Imm Hx Endocrine/Hematology History: Denies: Hx Diabetes Cardiovascular History: Denies: Hx Hypertension, Hx Pacemaker/ICD Respiratory History: Denies: Hx Asthma Musculoskeletal History: Reports: Other Musculoskeletal History - acl repair Sensory History: Reports: Hx Contacts or Glasses Denies: Hx Hearing Aid Opthamlomology History: Reports: Hx Contacts or Glasses Psychiatric History: Reports: Hx Anxiety Denies: Hx Panic Disorder - Surgical History Surgery Procedure, Year, and Place: LEFT KNEE ACL/FX RT KNEE WITH ORIF SCREW Infectious Disease History: No Infectious Disease History: Denies: Hx of Known/Suspected MRSA, Traveled Outside the [place] in Last 30 Days - Family History Known Family History: Positive: Cardiac Disease Negative: Diabetes - Social History Alcohol Use: None Hx Substance Use: No Substance Use Type: Reports: None Hx Tobacco Use: Yes Smoking Status (MU): Heavy Every Day Tobacco Smoker Review of Systems Negative: Fever Negative: Chest Pain Negative: Shortness Of Breath Positive: Myalgia - back pain All Other Systems Reviewed And Are Negative: Yes Physical Exam Triage Information Reviewed: Yes Vital Signs On Initial Exam: Initial Vitals Temp Pulse Resp BP Pulse Ox 97.4 F 99 14 128/83 99 07/11/18 18:02 07/11/18 18:02 07/11/18 18:02 07/11/18 18:02 07/11/18 18:02 Vital Signs Reviewed: Yes Appearance: Positive: Well-Appearing Skin: Positive: Warm, Dry Head/Face: Positive: Normal Head/Face Inspection Eyes: Positive: Normal, Conjunctiva Clear ENT: Positive: Pharynx normal Respiratory/Lung Sounds: Positive: Clear to Auscultation, Breath Sounds Present Cardiovascular: Positive: Normal, RRR Musculoskeletal: Positive: Strength/ROM Intact - back with pain, Other - tenderness lower back greatest on right, pos SLR, sensation grossly intact, Neurological: Positive: Normal, Reflexes Intact - patella Psychiatric: Positive: Normal Diagnostics - Vital Signs Vital Signs Temp Pulse Resp BP Pulse Ox 07/11/18 20:18 16 07/11/18 18:02 97.4 F 99 14 128/83 99 - Laboratory Lab Statement: Any lab studies that have been ordered have been reviewed, and results considered in the medical decision making process. - CT spine CT Interpretation Completed By: Radiologist Summary of CT Findings: IMPRESSION: No acute findings. Back Pain Course/Dx - Course Course Of Treatment: 37 year old male presents with back pain since yesterday. He states he was lifting something and felt a pop. He states his been having pain on the right leg. No urinary symptoms. No loss of bowel or bladder. No saddle anesthesias. he is still able to ambulate. He admits to tingling down the right leg. Has history of back issues but has never had this pain before. No weakness. Has been taking ibuprofen for pain with minimal relief. 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 No other injury. On exam tenderness lower back greatest on the right side. Positive straight leg raise. Neurovascularly intact. CT spine normal. Gave pain medication feeling better. Will discharge with medrol and Flexeril. told follow up with primary. Patient understands and agrees with plan. - Diagnoses Differential Diagnosis/HQI/PQRI: Positive: Herniated Disc, Strain, Sprain Provider Diagnoses: Back pain Discharge - Sign-Out/Discharge Documenting (check all that apply): Patient Departure Patient Received Moderate/Deep Sedation with Procedure: No - Discharge Plan Condition: Good Disposition: HOME Prescriptions: Cyclobenzaprine TAB* [Flexeril 10 MG TAB*] 10 mg PO TID PRN #15 tab PRN Reason: Pain methylPREDNISolone [Medrol Dosepak 4 MG*] 4 mg PO .SEE KRISTYN INSTRUCTION #1 packet Patient Education Materials: Back Pain (ED) Referrals: [facility] [Outside] Additional Instructions: Follow directions on package for Medrol pack Take muscle relaxers three times a day Use ibuprofen or Tylenol for pain every 6 hours ice/heat area, move as much as possible Follow up with primary within 5 days Return to ED if develop any new or worsening symptoms - Billing Disposition and Condition Condition: GOOD Disposition: Home
[2018-07-11 21:19] VITALS: BP 120/78
== END 2018-07-11 21:18 | disposition home or self-care (01) ==
LOC: ED 18:01
DX: M54.9 Dorsalgia, unspecified (principal); Z88.2 Allergy status to sulfonamides; F17.210 Nicotine dependence, cigarettes, uncomplicated
CPT/HCPCS: 72131; 96372; 99282; A9270-GY; J1885

== ENCOUNTER → 2018-10-05 13:35 | Emergency (ER) | payer MEDICAID ==
[~2018-10-05 13:35] MED LIST changes: -Ketorolac INJ* 60 MG/2 ML VIAL IM ONE; +traMADol TAB* 50 MG PO ONE
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
[2018-10-05 16:25] VITALS: BP 130/101
== END | disposition home or self-care (01) ==
LOC: ED 13:35
DX: S09.90XA Unspecified injury of head, initial encounter (principal); W50.0XXA Accidental hit or strike by another person, initial encounter; F41.9 Anxiety disorder, unspecified; F17.210 Nicotine dependence, cigarettes, uncomplicated; Z88.8 Allergy status to other drugs, medicaments and biological substances; Z88.2 Allergy status to sulfonamides; Z87.820 Personal history of traumatic brain injury
CPT/HCPCS: 70450; 99282; A9270-GY

== ENCOUNTER 2019-05-04 19:34 | Emergency (ER) | payer OTHER ==
--- OUTSIDE RECORDS SUMMARY | 2019-05-04 19:39 | XMS REPORT | Continuity of Care Document ---
:1980 External Reference #:[id number] Author Name Malgorzata Pacheco MD, PHD Address [address] [place] [address], [address] [place] [address] Care Team Providers Name Role Phone Malgorzata Pacheco MD, PHD - Family Care Team Information Insights Strategist Medicine Problems Active Problems Provider Date Brachial plexus disorder Malgorzata Pacheco MD, PHD Onset: 02/12/2019 Encounter for screening for nutritional Malgorzata Pacheco MD, PHD Onset: 02/12 disorder Anxiety state Malgorzata Pacheco MD, PHD Onset: 02/12/2019 Disease Malgorzata Pacheco MD, PHD Onset: 02/12/2019 Visual disturbance Malgorzata Pacheco MD, PHD Onset: 02/12/2019 Impairment level: low vision of one eye Malgorzata Pacheco MD, PHD Onset: 02/12 Posttraumatic headache Malgorzata Pacheco MD, PHD Onset: 02/12/2019 Postconcussion syndrome Malgorzata Pacheco MD, PHD Onset: 02/12/2019 Social History Type Date Description Comments Sex Unknown Tobacco Use Start: Unknown Heavy tobacco smoker (more than 10 cigarettes/day) Tobacco Use Start: Unknown Heavy tobacco smoker (more than 10 cigarettes/day) Smoking Status Reviewed: 03/15/19 Heavy tobacco smoker (more than 10 cigarettes/day) Allergies, Adverse Reactions, Alerts Active Allergies Reaction Severity Comments Date Valium gets very violent Severe 02/12/2019 Medications Active Medications SIG Qnty Indications Ordering Provider Date Topiramate 1 tabs by mouth 90tabs F07.81 Malgorzata Pacheco, 03/15/2019 50mg Tablets every morning, 2 MD, PHD tabs by mouth every night Magnesium Gluconate 1 tab by mouth 60tabs F07.81 Malgorzata Pacheco, 2018 three times a , PHD 500(27mg) mg Tablets day as needed for muscle cramps D3 Maximum Strength 1 cap by mouth 90caps F41.9 Malgorzata Pacheco, 2018 every day with , PHD 5000Unit Capsules food Nac 600 1 cap by mouth 90caps F41.9 Malgorzata Pacheco, 02/12/2019 600mg Capsules three times a , PHD day after meals Chromium Picolinate 1 tab by mouth 90tabs F41.9 Malgorzata Pacheco, 2018 Ultra every morning MD PHD 500mcg Tablets with 16oz water B Ptfypfi-Rticdq-Bm 1 tab by mouth 90tabs F07.81 Malgorzata Pacheco, 2018 every day MD PHD Tablets Gabapentin 1 tab in 120caps G54.0 Malgorzata Pacheco, 300mg morning, 1 tab MD PHD Capsules at noon, 2 at bedtime. G44.301 Naltrexone HCL Anny Yousif, 50mg Tablets N.P. Meloxicam Anny Yousif, 7.5mg Tablets N.P. Vivitrol Inject 1 Unit (380MG) Unknown 380mg Suspension Intramuscularly Once Every Rec 4 Weeks Or Every Month Escitalopram Oxalate Luke Berger, 10mg HAZ TECH Tablets History Medications Topiramate 1 tab by mouth 60caps F07.81 Malgorzata Pacheco, 02/12/2019 - 25mg Caps twice a day MD PHD 03/15/2019 Sprinkle Methocarbamol 1 tabs by mouth 30tabs G44.301 Malgorzata Pacheco, 02/12/2019 - 500mg at bedtime as , PHD 03/15/2019 Tablets needed for muscle spasm Immunizations CPT Code Status Date Vaccine Lot # [id number] Refused 03/15/2019 Influenza Virus Vaccine, Quadrivalent, 36 Mos+, .5ML Vital Signs Date Vital Result Comment 03/15/2019 11:24am BP Systolic 114 mmHg BP Diastolic 86 mmHg Body Temperature 98.6 F Heart Rate 99 /min Respiratory Rate 14 /min Weight 202.00 lb O2 % BldC Oximetry 99 % 02/12/2019 12:54pm BP Systolic 124 mmHg BP Diastolic 81 mmHg Heart Rate 86 /min Respiratory Rate 16 /min Weight 172.00 lb O2 % BldC Oximetry 96 % Pain Level 0 Results Description No Information Available Procedures Date Code Description Status 02/15/2019 25521 Eye Exam New Patient Comprehensive Completed Medical Devices Description No Information Available Encounters Type Date Location Provider Dx Diagnosis Office Visit 03/15/2019 [facility] Tara F07.81 Postconcussional 11:30a Farhad Mcgarry MD, syndrome PHD G44.301 Post-traumatic headache, unspecified, intractable H53.8 Other visual disturbances R45.1 Restlessness and agitation F41.9 Anxiety disorder, unspecified G54.0 Brachial plexus disorders G47.00 Insomnia, unspecified Office Visit 02/12/2019 [facility] Deidra Pacheco7.81 Postconcussional 1:00p [facility] Farhad Mcgarry MD, syndrome Main PHD G44.301 Post-traumatic headache, unspecified, intractable H53.8 Other visual disturbances R45.1 Restlessness and agitation F41.9 Anxiety disorder, unspecified E55.9 Vitamin D deficiency, unspecified R53.83 Other fatigue Z13.21 Encounter for screening for nutritional disorder G54.0 Brachial plexus disorders G47.00 Insomnia, unspecified Assessments Date Code Description Provider 03/15/2019 F07.81 Postconcussional syndrome Malgorzata Pacheco MD, PHD 03/15/2019 G44.301 Post-traumatic headache, unspecified, Malgorzata Pacheco MD , PHD intractable 03/15/2019 H53.8 Other visual disturbances Malgorzata Pacheco MD, PHD 03/15/2019 R45.1 Restlessness and agitation Malgorzata Pacheco MD, PHD 03/15/2019 F41.9 Anxiety disorder, unspecified Malgorzata Pacheco MD, PHD 03/15/2019 G54.0 Brachial plexus disorders Malgorzata Pacheco MD, PHD 03/15/2019 G47.00 Insomnia, unspecified Malgorzata Pacheco MD, PHD 02/15/2019 F07.81 Postconcussional syndrome Satya Delacruz MD 02/12/2019 F07.81 Postconcussional syndrome Malgorzata Pacheco MD, PHD 02/12/2019 G44.301 Post-traumatic headache, unspecified, Malgorzata Pacheco MD , PHD intractable 02/12/2019 H53.8 Other visual disturbances Malgorzata Pacheco MD, PHD 02/12/2019 R45.1 Restlessness and agitation Malgorzata Pacheco MD, PHD 02/12/2019 F41.9 Anxiety disorder, unspecified Malgorzata Pacheco MD, PHD 02/12/2019 E55.9 Vitamin D deficiency, unspecified Malgorzata Pacheco MD, PHD 02/12/2019 R53.83 Other fatigue Malgorzata Pacheco MD, PHD 02/12/2019 Z13.21 Encounter for screening for nutritional Malgorzata Pacheco MD, PHD disorder 02/12/2019 G54.0 Brachial plexus disorders Malgorzata Pacheco MD, PHD 02/12/2019 G47.00 Insomnia, unspecified Malgorzata Pacheco MD, PHD Plan of Treatment 03/15/2019 - Malgorzata Pacheco MD, PHDF07.81 Postconcussional syndromeNew Medication:Topiramate 50 mg - 1 tabs by mouth every morning, 2 tabs by mouth every nightMagnesium Gluconate 500(27 mg) mg - 1 tab by mouth three times a day as needed for muscle crampsNew Therapy:Physical/Occupational YqfbnnnB55.301 Post -traumatic headache, unspecified, dyuliclzleqQ12.8 Other visual irzajbolhnmhQ46.1 Restlessness and tccgwhwwuR31.9 Anxiety disorder, unspecifiedComments:To help lesson mood and anxiety with neutraceuticals - long- term, will take weeks to months to show an effect often: Vitamin D - likely deficient due to zendejas effect in [place]. Implicated in osteoporosis, osteopenia, fatigue, increased risk of diabetes, and depression/seasonal affective disorder. Recommend you take 4000 to 5000 IU of Vitamin D3 daily. Can check vitamin D25 level - takes year+ to replace deficiency. Can get capsule or gummy over the counter. [place] 3 - essential fatty acid has a mild moodstabilizing effect. Good supplement for kids and aids brain development. Increases good cholesterol and helps clean plaque out of arteries, also has an anti- inflammatory effect for joints, skin, etc. recommend 1000mg of DHA +EPA daily - capsule or gummy over the counter. N-acetyl Cysteine - current studies show a an anti-agitation, improved clarity of thought effect. Biologically seems to reduce inflammation in nervous system. Studies show 1800mg to 2400mg daily safe. Improvements start at 3 weeks, continue to improve at 12 weeks of taking.G54.0 Brachial plexus disordersNew Therapy:Physical/Occupational YkqwncxL12.00 Insomnia, unspecifiedComments:Practice good sleep hygiene, including:~ Restricting the night-time sleep period to about eight hours~ Waking at a regular time~ Arising from bed at a regular time~ Avoiding going to bed too early~ Avoiding alcohol~ Avoiding stimulants, caffeinated beverages, power/energy drinks, nicotine, and xmdf-roz-zgkfbmr medications~ Avoiding stimulating activities, light, noise, and temperature extremes beforebedtime ( e.g., exercise, video games, T.V.) or in the sleeping area~ Reducing (to less than 30 minutes), or abolishing, daytime naps~ Practicing relaxation techniques ~ Engaging in moderate exercise, but not immediately before bedtime Functional Status Description No Information Available Mental Status Description No Information Available Referrals Refer to Reason for Referral Status Appt Date Satya Delacruz MD History of repeat concussions with visual Closed 02/15/2019 disturbance and photophobia. [address] [place] [address] [phone]
[2019-05-04] MEDS ORDERED: Tetan/Diph/Pertus SYR(Tdap)* 0.5 ML SYR(BOOSTRIX) use SYR contains LATEX IM ONE (19:40)
[2019-05-04 19:47] VITALS: BP 153/82
[2019-05-04] MEDS ORDERED: Ketorolac INJ* 30 MG/ML 1 ML VIAL IM ONE (19:49)
--- NOTE | 2019-05-04 19:52 | UC ---
Hand/Wrist HPI - HPI Summary HPI Summary: 38 yo male reports here soon after lacerating left 2nd and 3rd fingers with a table saw He is right handed Td not up to date - History Of Current Complaint Chief Complaint: UCUpperExtremity Stated Complaint: FINGER LACERATION Time Seen by Provider: 05/04/19 19:41 Hx Obtained From: Patient Onset/Duration: Sudden Onset Severity Initially: Severe Severity Currently: Severe Pain Intensity: 10 Character Of Pain: Sharp Aggravating Factor(s): Movement Alleviating Factor(s): Compression Associated Signs And Symptoms: Positive: Negative Related History: Dominant Hand Right Hands: 1 - lac number one 2 - lac #2 3 - lac number 3 4 - lac # 4 - Allergies/Home Medications Allergies/Adverse Reactions: Allergies Allergy/AdvReac Type Severity Reaction Status Date / Time diazepam [From Valium] Allergy Unknown Verified 05/04/19 19:38 Reaction Details sulfamethoxazole Allergy GI Upset Verified 05/04/19 19:38 [From Bactrim] trimethoprim [From Bactrim] Allergy GI Upset Verified 05/04/19 19:38 PMH/Surg Hx/FS Hx/Imm Hx Previously Healthy: Yes Other History Of: Negative For: Anticoagulant Therapy - Surgical History Surgical History: Yes Surgery Procedure, Year, and Place: LEFT KNEE ACL/FX RT KNEE WITH ORIF SCREW - Family History Known Family History: Positive: Cardiac Disease, Hypertension Negative: Diabetes - Social History Alcohol Use: None Substance Use Type: None Smoking Status (MU): Heavy Every Day Tobacco Smoker Household Exposure Type: Cigarettes - Immunization History Most Recent Influenza Vaccination: N/A Most Recent Pneumonia Vaccination: N/A Review of Systems All Other Systems Reviewed And Are Negative: Yes Constitutional: Positive: Negative Skin: Positive: Negative Eyes: Positive: Negative ENT: Positive: Negative Respiratory: Positive: Negative Cardiovascular: Positive: Negative Gastrointestinal: Positive: Negative Genitourinary: Positive: Negative Motor: Positive: Negative Neurovascular: Positive: Negative Musculoskeletal: Positive: Negative Neurological: Positive: Negative Psychological: Positive: Negative Physical Exam Triage Information Reviewed: Yes Appearance: Well-Appearing, No Pain Distress, Well-Nourished Vital Signs: Initial Vital Signs Temp 97.8 F 05/04/19 19:41 Pulse 88 05/04/19 19:41 Resp 18 05/04/19 19:41 BP 153/82 05/04/19 19:41 Pulse Ox 99 05/04/19 19:41 Vital Signs Reviewed: Yes Eyes: Positive: Conjunctiva Clear ENT: Positive: Hearing grossly normal. Negative: Nasal congestion, Nasal drainage, Trismus, Muffled voice, Hoarse voice Neck: Positive: Supple, Nontender, No Lymphadenopathy Respiratory: Positive: Lungs clear, Normal breath sounds, No respiratory distress, No accessory muscle use Cardiovascular: Positive: RRR, No Murmur Musculoskeletal: Positive: ROM Intact, No Edema Neurological: Positive: Alert Psychological Exam: Normal Skin Exam: Other - see image Procedures - Laceration/Wound Repair 1 Location: Other - left middle finger Description: Irregular Anesthesia: Digital, 2.0%, Lido Length, Depth and Shape: ragged linear laceration 2.0 cm L 3mm W 3 mm Betadine Prep?: Yes Irrigated w/ Saline (ccs): 500 Laceration/Wound Explored: clean Closure: Single Layer Debridement: minimal Suture Type: Nylon Number of Sutures: 8 Layer Closure?: No Sterile Dressing Applied?: No 2 Location: Other - LMF Description: Linear Length, Depth and Shape: L 1cm 2mm wide, 2mm deep linear Betadine Prep?: Yes Irrigated w/ Saline (ccs): 500 Laceration/Wound Explored: clean Suture Type: Nylon Number of Sutures: 3 - 5-0 interupted Layer Closure?: No Sterile Dressing Applied?: No 3 Location: Other - left index finger Length, Depth and Shape: 1 cm long, 2mm deep 1mm wide linear Betadine Prep?: Yes Irrigated w/ Saline (ccs): 500 Laceration/Wound Explored: clean Closure: Single Layer Suture Type: Nylon Number of Sutures: 4 - 5-0 nylon 4 Location: Other - left index finger Description: Linear Length, Depth and Shape: 5mm L, 1 mm wide 1 mm deep linear Irrigated w/ Saline (ccs): 500 Laceration/Wound Explored: clean Closure: Skin Adhesive Hand/Wrist Course/Dx - Differential Dx/Diagnosis Provider Diagnosis: Laceration of left middle finger, Laceration of left index finger Discharge ED - Sign-Out/Discharge Documenting (check all that apply): Patient Departure All imaging exams completed and their final reports reviewed: No - Discharge Plan Condition: Stable Disposition: HOME Prescriptions: Cephalexin CAP* [Keflex CAP*] 500 mg PO QID #16 cap Patient Education Materials: Finger Laceration (ED) Referrals: [facility] [Outside] (bp recheck in 2-20 weeks) Additional Instructions: in about 24 hours remove dressings gently clean twice daily with soap and water gently dry apply antibiotic oint (thin film) dressing until it starts to seal up splint on middle finger for at least 4 days elevate elevate elevate Recheck for concerns of infection sutures out in about 10 days - Billing Disposition and Condition Condition: STABLE Disposition: Home
[2019-05-04] MEDS ORDERED: Lidocaine 2% PF * 5 ML VIAL INJ ONE (19:56)
[2019-05-04] MEDS ORDERED: Cephalexin CAP* 500 MG PO ONE (21:02)
--- NOTE | 2019-05-05 10:20 | UC ---
- Progress Note Progress Note: Patient Name: KENYA MERCEDES Medical Record#: [id number] Ordering Physician: Freddy Ventura MD Acct.#: [id number] : 1980 Age: 38 Sex: M Location: [facility] Exam Date: 05/04/191952 ADM Status: DEP ER Order Information: HAND - LEFT MINIMUM 3 VIEWS Accession Number: [id number] CPT: 70970 INDICATION: Left hand injury. TECHNIQUE: 4 views of the left hand were obtained. FINDINGS: There is dressing around the second and third digits. No radiopaque foreign bodies identified. The bone mineralization is within normal limits. No fracture is identified. Anatomic alignment is maintained. The joint spaces are preserved. IMPRESSION: NO RADIOPAQUE FOREIGN BODY OR FRACTURE IDENTIFIED R0. Preliminary Imaging Read R0 <Electronically signed by Sandip Bustillos MD in OV> 05/05/19747 Dictated By: Sandip Bustillos MD Dictated Date/Time: 05/05/19744 Transcribed Date/Time: 05/05/19744 Copy to: CC:Freddy Ventura MD; No Primary Care Phys,[facility] Imaging - [facility] Imaging - [facility] Imaging - [facility] [address] [address] ph [phone]) ph ([phone]) ph ([phone]) This report is only to be considered final once signed by the Provider(s) as displayed in the "<Electronically Signed by >" field (s). Absence of a signature indicates the report is in a draft status and still needs to be finalized. In the event this document was created by someone other than the signing Provider, the individual initiating the document will be listed in the "Entered by:" or "Dictated by:" dixon. 1 of 1 Course/Dx - Diagnoses Provider Diagnoses: Laceration of left middle finger, Laceration of left index finger Discharge ED - Sign-Out/Discharge Documenting (check all that apply): Post-Discharge Follow Up All imaging exams completed and their final reports reviewed: Yes - Discharge Plan Condition: Stable Disposition: HOME Prescriptions: Cephalexin CAP* [Keflex CAP*] 500 mg PO QID #16 cap Patient Education Materials: Finger Laceration (ED) Forms: *Work Release Referrals: [facility] [Outside] (bp recheck in 2-20 weeks) Additional Instructions: in about 24 hours remove dressings gently clean twice daily with soap and water gently dry apply antibiotic oint (thin film) dressing until it starts to seal up splint on middle finger for at least 4 days elevate elevate elevate Recheck for concerns of infection sutures out in about 10 days - Billing Disposition and Condition Condition: STABLE Disposition: Home
== END 2019-05-04 21:18 | disposition home or self-care (01) ==
LOC: UCEAST 19:34
DX: S61.213A Laceration without foreign body of left middle finger without damage to nail, initial encounter (principal); S61.211A Laceration without foreign body of left index finger without damage to nail, initial encounter; F17.200 Nicotine dependence, unspecified, uncomplicated; Z23 Encounter for immunization; Z88.2 Allergy status to sulfonamides; Z88.8 Allergy status to other drugs, medicaments and biological substances; W27.8XXA Contact with other nonpowered hand tool, initial encounter; Y92.9 Unspecified place or not applicable
CPT/HCPCS: 12002; 90715; 99212; A9270-GY; G0463; J1885